=== PATIENT | female | born 1990 | race Caucasian/White ===

== ENCOUNTER 2017-08-16 19:44 | Emergency (ER) | payer MEDICAID ==
[~2017-08-16] VITALS: Ht 152.4 cm; Wt 61.7 kg
[~2017-08-16 19:44] MED LIST: CLIN-79 PO
[2017-08-16 20:15] VITALS: BP 134/76
[2017-08-16 20:55] LABS: BASOPHILS % (AUTO) 0.3 % (0-1); EOSINOPHILS # (AUTO) 0.1 X10'3 (0-0.9); HEMATOCRIT 41.1 % (35.0-45.0); HEMOGLOBIN 13.8 g/dl (12.0-16.0); LYMPHOCYTES # (AUTO) 0.9 X10'3 (1.1-4.8); LYMPHOCYTES % (AUTO) 7.5 % (21-51); MEAN CORPUSCULAR HEMOGLOBIN 29.5 PG (27.0-31.0); MEAN CORPUSCULAR HGB CONC 33.6 % (33.0-36.5); MEAN CORPUSCULAR VOLUME 87.8 FL (78-98); MEAN PLATELET VOLUME 8.3 FL (7.4-10.4); MONOCYTES # (AUTO) 0.4 X10'3 (0-0.9); MONOCYTES % (AUTO) 3.1 % (2-12); NEUTROPHILS # (AUTO) 10.1 X10'3 (1.8-7.7); NEUTROPHILS % (AUTO) 88.1 % (42-75); PLATELET COUNT 267 X10'3 (140-440); RED BLOOD COUNT 4.69 X10'6 (4.20-5.60); RED CELL DISTRIBUTION WIDTH 14.1 % (11.5-14.5); WHITE BLOOD COUNT 11.5 X10'3 (4.5-11.0)
[2017-08-16 21:13] LABS: PARTIAL THROMBOPLASTIN TIME 24 SECONDS (22-32)
[2017-08-16 21:21] LABS: ALANINE AMINOTRANSFERASE 100 U/L (12-78); ALBUMIN 4.3 G/DL (3.4-5.0); ALBUMIN/GLOBULIN RATIO 1.1 (1.1-1.5); ALKALINE PHOSPHATASE 87 IU/L (46-116); ANION GAP 8 (8-16); ASPARTATE AMINO TRANSFERASE 68 U/L (10-37); BILIRUBIN,TOTAL 0.5 MG/DL (0.1-1.0); BLOOD UREA NITROGEN 8 MG/DL (7-18); BUN/CREATININE RATIO 12.7 (6.6-38.0); CALCIUM 9.8 MG/DL (8.5-10.1); CHLORIDE 98 MMOL/L (99-107); CREATININE 0.63 MG/DL (0.40-0.90); GLUCOSE 124 MG/DL (70-104); POTASSIUM 3.7 MMOL/L (3.5-5.1); SODIUM 138 MMOL/L (135-145); TOTAL CARBON DIOXIDE 31.7 MMOL/L (24-32); TOTAL PROTEIN 8.2 G/DL (6.4-8.2); eGFR > 90 ML/MIN
[2017-08-17] MEDS ORDERED: NITR100C6 PO (20:47)
== END 2017-08-16 23:41 | disposition home or self-care (01) ==
LOC: ER 19:44
DX: F15.159 Other stimulant abuse with stimulant-induced psychotic disorder, unspecified (principal); R51 Headache; R07.9 Chest pain, unspecified; Z56.0 Unemployment, unspecified; Z91.030 Bee allergy status; Z79.2 Long term (current) use of antibiotics
CPT/HCPCS: 36415; 71045; 80053; 84484; 85025; 85610; 85730; 93005; 99285

== ENCOUNTER 2017-08-17 17:05 | Emergency (ER) | payer MEDICAID ==
[~2017-08-17] VITALS: Ht 152.4 cm; Wt 59.0 kg
[2017-08-17 18:50] LABS: CLARITY,URINE Cloudy (Clear); COLOR,URINE Yellow (Yellow); GLUCOSE, URINE Negative (Neg); KETONES,URINE 40 mg/dl (Neg); LEUKOCYTE ESTERASE ,URINE Moderate (Neg); NITRITES, URINE Negative (Neg); OCCULT BLOOD,URINE Negative (Neg); PROTEIN,URINE Negative (Neg); URINE HCG NEGATIVE (NEG)
[2017-08-17 19:03] LABS: UA COLLECTION TYPE VOIDED
[2017-08-17 19:04] LABS: BACTERIA,URINE FEW /HPF (Neg); RBC,URINE NONE SEEN /HPF (0-2); SQUAMOUS EPITHELIAL CELL,UR MODERATE /LPF (FEW)
[2017-08-17] MEDS ORDERED: NITR100C6 PO (20:47)
[2017-08-17 20:55] VITALS: BP 132/79
[2017-08-18] MEDS ORDERED: CEPH-571 PO (14:39)
== END 2017-08-17 20:58 | disposition home or self-care (01) ==
LOC: ER 17:06
DX: N39.0 Urinary tract infection, site not specified (principal); R10.31 Right lower quadrant pain; F15.10 Other stimulant abuse, uncomplicated; Z60.2 Problems related to living alone; Z91.030 Bee allergy status; Z79.899 Other long term (current) drug therapy
CPT/HCPCS: 76856; 81001; 81025; 87088; 99285

== ENCOUNTER 2017-08-17 23:45 | Emergency (ER) | payer MEDICAID ==
[~2017-08-17] VITALS: Ht 152.4 cm; Wt 54.5 kg
[~2017-08-17 23:45] MED LIST changes: +NITR100C6 PO
[2017-08-18 03:41] VITALS: BP 122/78
[2017-08-18] MEDS ORDERED: CEPH-571 PO (14:39)
== END 2017-08-18 03:43 | disposition home or self-care (01) ==
LOC: ER 23:46
DX: F29 Unspecified psychosis not due to a substance or known physiological condition (principal); F15.10 Other stimulant abuse, uncomplicated; F17.200 Nicotine dependence, unspecified, uncomplicated; Z98.890 Other specified postprocedural states; Z56.0 Unemployment, unspecified; Z91.030 Bee allergy status; Z79.899 Other long term (current) drug therapy
CPT/HCPCS: 99281; 99284

== ENCOUNTER 2017-08-18 06:50 | Emergency (ER) | payer MEDICAID ==
[~2017-08-18] VITALS: Ht 152.4 cm; Wt 54.0 kg
[2017-08-18 06:58] VITALS: BP 126/86
[2017-08-18] MEDS ORDERED: lamoTRIgine 25mg tablet PO ONE (08:35)
[2017-08-18] MEDS ORDERED: clonazePAM 0.5mg tablet PO ONE (08:35)
[2017-08-18] MEDS ORDERED: CEPH-571 PO (14:39)
== END 2017-08-18 09:20 | disposition home or self-care (01) ==
LOC: ER 06:50
DX: F20.9 Schizophrenia, unspecified (principal); F15.10 Other stimulant abuse, uncomplicated; Z91.030 Bee allergy status; Z98.890 Other specified postprocedural states
CPT/HCPCS: 99283; 99284

== ENCOUNTER 2017-08-18 12:49 | Emergency (ER) | payer MEDICAID ==
[~2017-08-18] VITALS: Ht 152.4 cm; Wt 60.5 kg
[2017-08-18 12:54] VITALS: BP 112/81
[2017-08-18] MEDS ORDERED: CEPH-571 PO (14:39)
== END 2017-08-18 14:49 | disposition home or self-care (01) ==
LOC: ER 12:50
DX: R22.0 Localized swelling, mass and lump, head (principal); T37.8X5A Adverse effect of other specified systemic anti-infectives and antiparasitics, initial encounter; N39.0 Urinary tract infection, site not specified; F15.10 Other stimulant abuse, uncomplicated; F20.9 Schizophrenia, unspecified; Z91.030 Bee allergy status; Y92.89 Other specified places as the place of occurrence of the external cause
CPT/HCPCS: 99283

== ENCOUNTER 2017-08-19 10:35 | Emergency (ER) | payer MEDICAID ==
[~2017-08-19] VITALS: Ht 5032.2 cm; Wt 60.0 kg
[~2017-08-19 10:35] MED LIST changes: +CEPH-571 PO
[2017-08-19] MEDS ORDERED: diphenhydrAMINE 50 mg/ml inj IM ONE (11:30)
[2017-08-19] MEDS ORDERED: LORazepam 2 mg/ml vial IM ONE (11:30)
[2017-08-19 12:11] LABS: BASOPHILS % (AUTO) 0.6 % (0-1); EOSINOPHILS # (AUTO) 0.1 X10'3 (0-0.9); EOSINOPHILS % (AUTO) 1.3 % (0-6); HEMATOCRIT 38.7 % (35.0-45.0); HEMOGLOBIN 13.1 g/dl (12.0-16.0); LYMPHOCYTES # (AUTO) 1.7 X10'3 (1.1-4.8); LYMPHOCYTES % (AUTO) 29.6 % (21-51); MEAN CORPUSCULAR HEMOGLOBIN 29.9 PG (27.0-31.0); MEAN CORPUSCULAR HGB CONC 33.8 % (33.0-36.5); MEAN CORPUSCULAR VOLUME 88.4 FL (78-98); MEAN PLATELET VOLUME 8.1 FL (7.4-10.4); MONOCYTES # (AUTO) 0.6 X10'3 (0-0.9); MONOCYTES % (AUTO) 10.6 % (2-12); NEUTROPHILS # (AUTO) 3.3 X10'3 (1.8-7.7); NEUTROPHILS % (AUTO) 57.9 % (42-75); PLATELET COUNT 260 X10'3 (140-440); RED BLOOD COUNT 4.38 X10'6 (4.20-5.60); RED CELL DISTRIBUTION WIDTH 14.1 % (11.5-14.5); WHITE BLOOD COUNT 5.7 X10'3 (4.5-11.0)
[2017-08-19 12:24] LABS: ALANINE AMINOTRANSFERASE 75 U/L (12-78); ALBUMIN 3.8 G/DL (3.4-5.0); ALBUMIN/GLOBULIN RATIO 1.1 (1.1-1.5); ALKALINE PHOSPHATASE 83 IU/L (46-116); ANION GAP 7 (8-16); ASPARTATE AMINO TRANSFERASE 39 U/L (10-37); BLOOD UREA NITROGEN 16 MG/DL (7-18); BUN/CREATININE RATIO 21.6 (6.6-38.0); CHLORIDE 104 MMOL/L (99-107); CREATININE 0.74 MG/DL (0.40-0.90); GLUCOSE 82 MG/DL (70-104); SODIUM 141 MMOL/L (135-145); TOTAL CARBON DIOXIDE 29.9 MMOL/L (24-32); TOTAL PROTEIN 7.4 G/DL (6.4-8.2); eGFR > 90 ML/MIN
[2017-08-19 12:33] LABS: ETHANOL < 0.010 GM/DL (0.0-0.010)
[2017-08-19 13:12] LABS: CLARITY,URINE CLEAR (Clear); COLOR,URINE YELLOW (Yellow); GLUCOSE, URINE NEGATIVE (Neg); KETONES,URINE TRACE mg/dl (Neg); LEUKOCYTE ESTERASE ,URINE NEGATIVE (Neg); NITRITES, URINE NEGATIVE (Neg); OCCULT BLOOD,URINE TRACE-INTACT (Neg); PH,URINE 5.5 (4.8-8.0); PROTEIN,URINE NEGATIVE (Neg); UROBILINOGEN,URINE 0.2 E.U/dL (0.2-1.0)
[2017-08-19 13:13] LABS: URINE HCG NEGATIVE (NEG)
[2017-08-19 13:19] LABS: UA COLLECTION TYPE URINAL
[2017-08-19 13:25] LABS: MUCUS STRANDS MODERATE /LPF (Neg); SQUAMOUS EPITHELIAL CELL,UR MANY /LPF (FEW)
[2017-08-19 13:26] LABS: URINE AMPHETAMINE SCREEN POSITIVE (Neg); URINE BARBITUATE SCREEN NEGATIVE (Neg); URINE BENZODIAZEPINES SCREEN NEGATIVE (Neg); URINE CANNABINOID SCREEN POSITIVE (Neg); URINE COCAINE SCREEN NEGATIVE (Neg); URINE METHADONE SCREEN POSITIVE (Neg); URINE OPIATE SCREEN POSITIVE (Neg); URINE PHENCYCLIDINE SCREEN NEGATIVE (Neg)
[2017-08-19 13:28] LABS: BACTERIA,URINE FEW /HPF (Neg); RBC,URINE 0-2 /HPF (0-2); WBC,URINE 0-4 /HPF (0-4)
[2017-08-19] MEDS ORDERED: haloperidol lactate 5mg/ml inj IM PRN (19:05)
[2017-08-20] MEDS ORDERED: METH-603 PO ×3 (05:49→12:04)
[2017-08-20] MEDS ORDERED: methadone 10mg tablet PO ONE ×2 (08:00→12:55)
[2017-08-20] MEDS ORDERED: nicotine 14mg patch - 24hr TD ONE (11:30)
[2017-08-20] MEDS ORDERED: quetiapine 100mg tablet PO SCH (11:30)
[2017-08-20] MEDS ORDERED: QUEtiapine 25mg tablet PO SCH ×2 (11:38→21:00)
[2017-08-20] MEDS ORDERED: QUET25TA PO (11:54)
[2017-08-20] MEDS ORDERED: NICO-630 TOP (11:57)
[2017-08-20] MEDS: LORazepam 1 MG tablet PO PRN ×2 (12:28→20:27)
[2017-08-20] MEDS: QUEtiapine 25mg tablet PO SCH (20:27)
[2017-08-21] MEDS: methadone 10mg tablet PO SCH (05:47)
[2017-08-21] MEDS: LORazepam 1 MG tablet PO PRN ×2 (05:53→21:09)
[2017-08-21] MEDS: nicotine 7mg patch - 24hr TD SCH (08:00)
[2017-08-21] MEDS: QUEtiapine 25mg tablet PO SCH (21:09)
[2017-08-22] MEDS: methadone 10mg tablet PO SCH (05:36)
[2017-08-22] MEDS: nicotine 7mg patch - 24hr TD SCH (08:00)
[2017-08-22] MEDS: LORazepam 1 MG tablet PO PRN (09:01)
[2017-08-22 11:52] VITALS: BP 100/57
== END 2017-08-22 13:35 | disposition home or self-care (01) ==
LOC: ER 10:36
DX: F15.159 Other stimulant abuse with stimulant-induced psychotic disorder, unspecified (principal); F19.10 Other psychoactive substance abuse, uncomplicated; F20.9 Schizophrenia, unspecified; Z98.890 Other specified postprocedural states; Z56.0 Unemployment, unspecified; Z91.030 Bee allergy status; Z79.899 Other long term (current) drug therapy
CPT/HCPCS: 36415; 80053; 80305; 80320; 81001; 81025; 84443; 85025; 96372; 99285; J1200; J1630; J2060

== ENCOUNTER 2020-04-16 11:35 | Emergency (ER) | payer MEDICAID ==
[~2020-04-16] VITALS: Ht 154.9 cm; Wt 69.9 kg
[~2020-04-16 11:35] MED LIST changes: -CEPH-571 PO; -CLIN-79 PO; +METH-603 PO; +NICO-630 TOP; -NITR100C6 PO; +QUET25TA PO
[2020-04-16] MEDS ORDERED: lamoTRIgine 100mg tablet PO STA (11:52)
[2020-04-16 11:55] VITALS: BP 127/79
[2020-04-16] MEDS ORDERED: LAMO200T2 PO (11:55)
[2020-04-16] MEDS ORDERED: QUET400T PO (11:55)
[2020-04-16] MEDS ORDERED: HALO10TA13 PO (11:55)
[2020-04-16] MEDS ORDERED: CLON-527 PO (11:55)
[2020-04-16] MEDS ORDERED: clonazePAM 1mg tablet PO ONE (12:10)
== END 2020-04-16 12:19 | disposition home or self-care (01) ==
LOC: ER 11:36
DX: F20.9 Schizophrenia, unspecified (principal); F15.90 Other stimulant use, unspecified, uncomplicated; Z76.0 Encounter for issue of repeat prescription; Z86.69 Personal history of other diseases of the nervous system and sense organs; Z56.0 Unemployment, unspecified; Z88.8 Allergy status to other drugs, medicaments and biological substances; Z79.899 Other long term (current) drug therapy
CPT/HCPCS: 99283

== ENCOUNTER 2020-04-19 21:25 | Emergency (ER) | payer MEDICAID ==
[~2020-04-19] VITALS: Ht 157.5 cm; Wt 70.0 kg
[~2020-04-19 21:25] MED LIST changes: +CLON-527 PO; +HALO10TA13 PO; +LAMO200T2 PO; +QUET400T PO
[2020-04-19 21:33] VITALS: BP 121/86
[2020-04-19] MEDS ORDERED: clonazePAM 1mg tablet PO ONE (22:15)
[2020-04-19] MEDS ORDERED: QUET400T PO (22:15)
[2020-04-19] MEDS ORDERED: LAMO200T2 PO (22:15)
[2020-04-29] MEDS ORDERED: QUET100T33 PO (13:28)
[2020-04-29] MEDS ORDERED: QUET200T30 PO (13:28)
[2020-05-01] MEDS ORDERED: HYDR-4383 PO (12:18)
== END 2020-04-19 22:36 | disposition home or self-care (01) ==
LOC: ER 21:27
DX: F20.9 Schizophrenia, unspecified (principal); F17.210 Nicotine dependence, cigarettes, uncomplicated; F15.90 Other stimulant use, unspecified, uncomplicated; F19.90 Other psychoactive substance use, unspecified, uncomplicated; Z76.0 Encounter for issue of repeat prescription; Z86.69 Personal history of other diseases of the nervous system and sense organs; Z98.890 Other specified postprocedural states; Z56.0 Unemployment, unspecified; Z91.030 Bee allergy status; Z79.899 Other long term (current) drug therapy
CPT/HCPCS: 99283

== ENCOUNTER 2020-04-24 00:27 | Emergency (ER) | payer MEDICAID ==
--- NOTE | 2020-04-24 00:34 | NUR ---
Called for pt however pt was utilizing the restroom. As soon as pt got out of the restroom, she left the ER saying she "had things to do."
== END 2020-04-24 00:36 | disposition home or self-care (01) ==
LOC: ER 00:28
DX: Z00.00 Encounter for general adult medical examination without abnormal findings (principal); Z53.21 Procedure and treatment not carried out due to patient leaving prior to being seen by health care provider

== ENCOUNTER 2020-10-31 13:00 | Emergency (ER) | payer MEDICAID ==
[~2020-10-31 13:00] MED LIST changes: -CLON-527 PO; -HALO10TA13 PO; +HYDR-4383 PO; -LAMO200T2 PO; -METH-603 PO; -NICO-630 TOP; +QUET100T33 PO; +QUET200T30 PO; -QUET25TA PO; -QUET400T PO
--- NOTE | 2020-10-31 13:19 | NUR ---
During triage, I started to place a blood pressure on patients left arm. Patient pushed the blood pressure cuff away and started to speak and looked directly at Blanca RN sitting at the desk. Patient would not look at me. While I spoke so Blanca spoke to patient and began to inquire regarding description of animal/snake. Patient stated that she would like to alert the authorities regarding someone putting a snake under her bed at which she was bitten by. Blanca asked what authorities she would like us to contact, she stated [employer] or animal control. Patient stated that [employer] would not do anything and that she came here thinking that we would be able to contact someone. We proceeded to ask about notifying animal control. I asked patient if the snake was still in her house and she said no it wasn't. I then I explained to her that law enforcement wouldn't be able to tell her who if anyone could have put a snake in her house unless she had cameras outside her home showing someone breaking in and placing said snake. I told her and if the snake was still in the house that we would contact animal control, but it was not. Patient stated that she didn't want to be seen that all she wanted was to notify the appropriate authorities. I told her that I could get a provider to see her in triage and evaluate the puncture wounds on her hand and she got up out of the triage chair, opened the door and left the lobby. I notified Dr. Ricardo regarding encounter.
== END 2020-10-31 13:40 | disposition left against medical advice (07) ==
LOC: ER 13:01
DX: T63.001A Toxic effect of unspecified snake venom, accidental (unintentional), initial encounter (principal); Z53.21 Procedure and treatment not carried out due to patient leaving prior to being seen by health care provider; Y92.89 Other specified places as the place of occurrence of the external cause

== ENCOUNTER 2020-11-12 17:20 | Emergency (ER) | payer MEDICAID ==
[~2020-11-12] VITALS: Ht 154.9 cm; Wt 65.9 kg
== END 2020-11-12 19:40 | disposition home or self-care (01) ==
LOC: ER 17:20
DX: M26.622 Arthralgia of left temporomandibular joint (principal); F20.9 Schizophrenia, unspecified; F15.90 Other stimulant use, unspecified, uncomplicated; Z87.442 Personal history of urinary calculi; Z86.69 Personal history of other diseases of the nervous system and sense organs; Z56.0 Unemployment, unspecified; Z98.890 Other specified postprocedural states; Z91.030 Bee allergy status; Z79.899 Other long term (current) drug therapy
CPT/HCPCS: 99282

== ENCOUNTER 2021-05-10 03:00 | Emergency (ER) | payer MEDICAID ==
[~2021-05-10] VITALS: Ht 152.4 cm; Wt 72.7 kg
[~2021-05-10 03:00] MED LIST changes: -QUET100T33 PO; +QUET100T34 PO; -QUET200T30 PO; +QUET200T31 PO
[2021-05-10 03:07] VITALS: BP 100/68
== END 2021-05-10 04:33 | disposition left against medical advice (07) ==
LOC: ER 03:01
DX: Z76.0 Encounter for issue of repeat prescription (principal); Z53.21 Procedure and treatment not carried out due to patient leaving prior to being seen by health care provider

== ENCOUNTER 2021-05-11 01:33 | Emergency (ER) | payer MEDICAID ==
[~2021-05-11] VITALS: Ht 165.1 cm; Wt 53.5 kg
[2021-05-11 02:00] VITALS: BP 107/72
--- NOTE | 2021-05-11 02:46 | NUR ---
The patient moved to bed 24 in the ER. She is wanting help with bugs that she believes are coming out all over her. She grabbed her hair and stated "just look at my hair it's a mess" There were no bugs that could be seen. She is mumbling to herself at times. She admits to recent meth use. She stated that she has been making her own oxycodone prescriptions by buying the chemical compounds and putting the pills together herself. 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 She denies thoughts to harm herself or others. She is asking about suboxone. When asked what her MH dx was she stated "I have a sleep disorder"
--- NOTE | 2021-05-11 03:03 | NUR ---
The patient is insisting on speaking with the MD before she complies with any additional requests from staff. Labs are pending.
[2021-05-11 03:27] LABS: BASOPHILS % (AUTO) 0.9 % (0-1); EOSINOPHILS # (AUTO) 0.1 X10'3 (0-0.9); HEMATOCRIT 35.9 % (35.0-45.0); HEMOGLOBIN 12.3 g/dl (12.0-16.0); LYMPHOCYTES # (AUTO) 1.5 X10'3 (1.1-4.8); LYMPHOCYTES % (AUTO) 35.8 % (21-51); MEAN CORPUSCULAR HGB CONC 34.3 g/dL (33.0-36.5); MEAN CORPUSCULAR VOLUME 87.4 FL (78-98); MEAN PLATELET VOLUME 8.3 FL (7.4-10.4); MONOCYTES # (AUTO) 0.6 X10'3 (0-0.9); MONOCYTES % (AUTO) 13.3 % (2-12); NEUTROPHILS # (AUTO) 2.1 X10'3 (1.8-7.7); PLATELET COUNT 266 X10'3 (140-440); RED BLOOD COUNT 4.11 X10'6 (4.20-5.60); RED CELL DISTRIBUTION WIDTH 13.5 % (11.5-14.5); WHITE BLOOD COUNT 4.3 X10'3 (4.5-11.0)
[2021-05-11 03:28] LABS: URINE HCG NEGATIVE (NEG)
[2021-05-11 03:45] LABS: URINE AMPHETAMINE SCREEN POSITIVE (Neg); URINE BARBITUATE SCREEN NEGATIVE (Neg); URINE BENZODIAZEPINES SCREEN NEGATIVE (Neg); URINE CANNABINOID SCREEN POSITIVE (Neg); URINE METHADONE SCREEN POSITIVE (Neg); URINE OPIATE SCREEN POSITIVE (Neg); URINE PHENCYCLIDINE SCREEN NEGATIVE (Neg)
[2021-05-11 03:46] LABS: ALANINE AMINOTRANSFERASE 24 U/L (12-78); ALBUMIN 3.6 G/DL (3.4-5.0); ALBUMIN/GLOBULIN RATIO 1.1 (1.1-1.5); ALKALINE PHOSPHATASE 87 IU/L (46-116); ANION GAP 8 (8-16); ASPARTATE AMINO TRANSFERASE 18 U/L (10-37); BILIRUBIN,TOTAL 1.1 MG/DL (0.1-1.0); BLOOD UREA NITROGEN 16 MG/DL (7-18); BUN/CREATININE RATIO 20.8 (6.6-38.0); CALCIUM 8.6 MG/DL (8.5-10.1); CHLORIDE 107 MMOL/L (99-107); CREATININE 0.77 MG/DL (0.40-0.90); GLUCOSE 96 MG/DL (70-104); POTASSIUM 3.9 MMOL/L (3.5-5.1); SODIUM 143 MMOL/L (135-145); TOTAL CARBON DIOXIDE 28.1 MMOL/L (24-32); eGFR 88 ML/MIN
--- NOTE | 2021-05-11 03:47 | NUR ---
The patient eloped from the overflow area. Security was contacted. ER [facility] following the patient.
--- NOTE | 2021-05-11 03:50 | NUR ---
made aware of patient eloping from the overflow. The patient was denying that she had any suicidal or homicidal thoughts. She stated that she had a home to go to. Her drug screen was positive for opiates, methadone, amphetamines and THC.
[2021-05-11 04:10] LABS: ETHANOL < 0.010 GM/DL (0.0-0.010)
[2021-05-11 04:41] LABS: URINE COCAINE SCREEN NEGATIVE (Neg)
== END 2021-05-11 04:19 | disposition left against medical advice (07) ==
LOC: ER 01:34
DX: Z00.8 Encounter for other general examination (principal); Z20.822 Contact with and (suspected) exposure to COVID-19; Z53.21 Procedure and treatment not carried out due to patient leaving prior to being seen by health care provider
CPT/HCPCS: 36415; 80053; 80305; 80320; 81025; 84443; 85025; 87635; C9803

== ENCOUNTER 2022-08-01 19:29 | Emergency (ER) | payer MEDICAID ==
[~2022-08-01] VITALS: Ht 154.9 cm; Wt 68.2 kg
[2022-08-01 20:36] LABS: BASOPHILS % (AUTO) 0.2 % (0-1); EOSINOPHILS # (AUTO) 0.2 X10'3 (0-0.9); EOSINOPHILS % (AUTO) 2.2 % (0-6); HEMATOCRIT 41.9 % (35.0-45.0); HEMOGLOBIN 14.1 g/dl (12.0-16.0); LYMPHOCYTES % (AUTO) 12.7 % (21-51); MEAN CORPUSCULAR HEMOGLOBIN 29.9 PG (27.0-31.0); MEAN CORPUSCULAR HGB CONC 33.6 g/dL (33.0-36.5); MEAN PLATELET VOLUME 7.7 FL (7.4-10.4); MONOCYTES # (AUTO) 0.8 X10'3 (0-0.9); MONOCYTES % (AUTO) 10.1 % (2-12); NEUTROPHILS # (AUTO) 5.9 X10'3 (1.8-7.7); NEUTROPHILS % (AUTO) 74.8 % (42-75); PLATELET COUNT 356 X10'3 (140-440); RED BLOOD COUNT 4.71 X10'6 (4.20-5.60); RED CELL DISTRIBUTION WIDTH 14.1 % (11.5-14.5); WHITE BLOOD COUNT 7.8 X10'3 (4.5-11.0)
[2022-08-01 20:48] LABS: ALANINE AMINOTRANSFERASE 37 U/L (12-78); ALBUMIN 3.5 G/DL (3.4-5.0); ALBUMIN/GLOBULIN RATIO 0.9 (1.1-1.5); ALKALINE PHOSPHATASE 78 IU/L (46-116); ANION GAP 8 (8-16); ASPARTATE AMINO TRANSFERASE 23 U/L (10-37); BILIRUBIN,TOTAL 0.7 MG/DL (0.1-1.0); BLOOD UREA NITROGEN 9 MG/DL (7-18); BUN/CREATININE RATIO 18.4 (6.6-38.0); CALCIUM 9.1 MG/DL (8.5-10.1); CHLORIDE 99 MMOL/L (99-107); CREATININE 0.49 MG/DL (0.40-0.90); GLUCOSE 97 MG/DL (70-104); LIPASE < 50 U/L (73-393); POTASSIUM 3.7 MMOL/L (3.5-5.1); SODIUM 138 MMOL/L (135-145); TOTAL CARBON DIOXIDE 30.7 MMOL/L (24-32); TOTAL PROTEIN 7.6 G/DL (6.4-8.2); eGFR > 90 ML/MIN
[2022-08-01] MEDS ORDERED: famotidine/PF 10 mg/ml inj IV ONE (23:20)
[2022-08-01] MEDS ORDERED: LIDOcaine Viscous 15ml cup MM ONE (23:20)
[2022-08-01] MEDS ORDERED: ondansetron/PF 4mg/2ml inj IV ONE (23:20)
[2022-08-01] MEDS ORDERED: normal saline 1000ml 1,000 ML IV ONE (23:20)
[2022-08-01] MEDS ORDERED: mag hydrox/Alum hydrox/simeth 30ml oral suspension PO ONE (23:20)
[2022-08-01] MEDS ORDERED: pantoprazole 40mg IV 80 MG in normal saline 100ml IV soln 100 ML IV ONE (23:20)
[2022-08-02] MEDS ORDERED: ketorolac trometh. 30mg/ml inj. IV ONE (00:25)
[2022-08-02 01:07] LABS: HCG SERUM QL NEGATIVE
[2022-08-02] MEDS ORDERED: ONDA8TAB13 PO (01:10)
[2022-08-02] MEDS ORDERED: FAMO-128 PO (01:10)
[2022-08-02 01:31] VITALS: BP 99/66
== END 2022-08-02 01:35 | disposition home or self-care (01) ==
LOC: ER 19:30
DX: K29.70 Gastritis, unspecified, without bleeding (principal); F20.9 Schizophrenia, unspecified; Z87.442 Personal history of urinary calculi; Z59.00 Homelessness unspecified; Z56.0 Unemployment, unspecified
CPT/HCPCS: 36415; 80053; 83690; 84703; 85025; 96365; 96375; 99284; C9113; J1885; J2405; J3490; J7030

== ENCOUNTER 2023-12-28 12:42 | Emergency (ER) | payer MEDICAID ==
[~2023-12-28] VITALS: Ht 154.9 cm; Wt 76.8 kg
[~2023-12-28 12:42] MED LIST changes: +FAMO-128 PO; +ONDA8TAB13 PO
[2023-12-28 13:59] LABS: URINE HCG NEGATIVE (NEG)
[2023-12-28] MEDS: normal saline 1000ML IV soln IVB ONE (14:25)
[2023-12-28] MEDS: ondansetron/PF 4mg/2ml inj IV ONE (14:25)
[2023-12-28] MEDS: ondansetron 4mg rapidly disintigrating tab PO ONE (14:34)
[2023-12-28 16:19] VITALS: BP 128/81; PULSE 91; RESP 18; O2SAT 99
== END 2023-12-28 16:59 | disposition home or self-care (01) ==
LOC: ER 12:42
DX: T40.411A Poisoning by fentanyl or fentanyl analogs, accidental (unintentional), initial encounter (principal); Z91.030 Bee allergy status; F20.9 Schizophrenia, unspecified; F15.90 Other stimulant use, unspecified, uncomplicated; Y92.89 Other specified places as the place of occurrence of the external cause
CPT/HCPCS: 81025; 99283; J7030

== ENCOUNTER 2024-04-01 06:00 | Inpatient (IN) | payer MEDICAID ==
[~2024-04-01] VITALS: Ht 152.4 cm; Wt 79.0 kg
[~2024-04-01 06:00] MED LIST changes: +ONDA-245 PO; -ONDA8TAB13 PO
[2024-04-01 07:52] LABS: BASOPHILS % (AUTO) 0.1 % (0-1); EOSINOPHILS % (AUTO) 0 % (0-6); HEMATOCRIT 38.7 % (35.0-45.0); HEMOGLOBIN 12.6 g/dl (12.0-16.0); LYMPHOCYTES # (AUTO) 0.5 X10'3 (1.1-4.8); LYMPHOCYTES % (AUTO) 1.8 % (21-51); MEAN CORPUSCULAR HEMOGLOBIN 29.3 PG (27.0-31.0); MEAN CORPUSCULAR HGB CONC 32.5 g/dL (33.0-36.5); MEAN PLATELET VOLUME 8.9 FL (7.4-10.4); MONOCYTES % (AUTO) 3.8 % (2-12); NEUTROPHILS # (AUTO) 24.1 X10'3 (1.8-7.7); NEUTROPHILS % (AUTO) 94.3 % (42-75); PLATELET COUNT 311 X10'3 (140-440); RED CELL DISTRIBUTION WIDTH 13.7 % (11.5-14.5)
[2024-04-01 07:57] LABS: WHITE BLOOD COUNT 25.5 X10'3 (4.5-11.0)
[2024-04-01 08:38] LABS: ALANINE AMINOTRANSFERASE 55 U/L (12-78); ALBUMIN 3.6 G/DL (3.4-5.0); ALBUMIN/GLOBULIN RATIO 1.1 (1.1-1.5); ALKALINE PHOSPHATASE 87 IU/L (46-116); ANION GAP 12 (8-16); ASPARTATE AMINO TRANSFERASE 72 U/L (10-37); BILIRUBIN,TOTAL 0.8 MG/DL (0.1-1.0); BLOOD UREA NITROGEN 12 MG/DL (7-18); CALCIUM 8.9 MG/DL (8.5-10.1); CHLORIDE 102 MMOL/L (99-107); GLUCOSE 132 MG/DL (70-104); SODIUM 141 MMOL/L (135-145); TOTAL CARBON DIOXIDE 27.4 MMOL/L (24-32); eCRCL 72 ML/MIN; eGFR 83 ML/MIN
[2024-04-01 08:40] LABS: POTASSIUM 2.8 MMOL/L (3.5-5.1)
[2024-04-01 08:46] LABS: PLATELET ESTIMATE NORMAL; TOTAL CELLS COUNTED 100
[2024-04-01] MEDS ORDERED: NALO4SPR BOTHNARES (09:06)
[2024-04-01] MEDS: ketorolac trometh 30MG/ML vial 30 MG/ML VIAL IV ONE (09:12)
[2024-04-01] MEDS: magnesium sulf-water 2g/50mL 50 ML IV ONE (09:12)
[2024-04-01 09:25] LABS: CREATINE KINASE 114 U/L (26-192)
[2024-04-01] MEDS: POTASSIUM CHLORIDE 20 MEQ/15 ML oral solution PO ONE (09:26)
[2024-04-01 09:32] LABS: BETA HCG,QUANTITATIVE < 1.0 mIU/ml
[2024-04-01 11:27] LABS: BILIRUBIN,URINE SMALL (Neg); CLARITY,URINE CLOUDY (Clear); COLOR,URINE YELLOW (Yellow); GLUCOSE, URINE 250 mg/dl (Neg); KETONES,URINE 40 mg/dl (Neg); LEUKOCYTE ESTERASE ,URINE NEGATIVE (Neg); NITRITES, URINE NEGATIVE (Neg); OCCULT BLOOD,URINE NEGATIVE (Neg); PROTEIN,URINE TRACE mg/dl (Neg)
[2024-04-01 11:49] LABS: UA COLLECTION TYPE CLN CATCH MIDSTREAM
[2024-04-01 11:52] LABS: BACTERIA,URINE 4+ /HPF (Neg); RBC,URINE NONE SEEN /HPF (0-2); SQUAMOUS EPITHELIAL CELL,UR MANY /LPF (FEW)
[2024-04-01 11:53] LABS: WBC,URINE 20-30 /HPF (0-4)
[2024-04-01] MEDS ORDERED: potassium Cl 40MEQ/1/2NS 520ml 520 ML IV PRN (13:40)
[2024-04-01] MEDS ORDERED: potassium Cl 20 mEq SR tablet PO PRN ×2 (13:40)
[2024-04-01] MEDS ORDERED: ondansetron/PF 4mg/2ml inj IV PRN (13:40)
[2024-04-01] MEDS ORDERED: magnesium hydroxide 30ml (MOM) UD suspension PO PRN (13:40)
[2024-04-01] MEDS ORDERED: magnesium sulf-water 2g/50mL 50 ML IV PRN (13:40)
[2024-04-01] MEDS ORDERED: mag hydrox/Alum hydrox/simeth 30ml oral suspension PO PRN (13:40)
[2024-04-01] MEDS ORDERED: magnesium sulf-water 4G/100mL 100 ML IV PRN (13:40)
[2024-04-01] MEDS: naloxone 2mg/2ml inj 2 MG in normal saline 500ml IV soln 498 ML IV SCH (14:16)
[2024-04-01] MEDS ORDERED: morphine 2 MG/ML inj. syringe IV PRN (14:35)
[2024-04-01] MEDS: normal saline 1000ml 1,000 ML IV SCH (15:52)
[2024-04-01 15:55] LABS: C-REACTIVE PROTEIN 1.38 MG/DL (0.0-0.5); MAGNESIUM 2.5 MG/DL (1.5-2.4)
[2024-04-01 15:59] LABS: ETHANOL < 10 MG/DL (<10)
[2024-04-01] MEDS: normal saline 500ml IV soln 500 ML IV ONE (17:20)
[2024-04-01] MEDS: normal saline 1000ML IV soln IVB ONE (17:21)
[2024-04-01 19:15] VITALS: BP 95/65; PULSE 98; RESP 16; TEMP 97.5; O2SAT 100
[2024-04-01 20:00] VITALS: RESP 16; O2SAT 96
[2024-04-01] MEDS: K and/or MAG REPLACEMENT MC SCH (20:00)
[2024-04-01] MEDS ORDERED: docusate sod 100mg capsule PO SCH (20:00)
[2024-04-01] MEDS: enoxaparin 40mg/0.4ml syringe SQ SCH (20:09)
[2024-04-01 22:00] VITALS: BP 102/58; PULSE 78; RESP 16; TEMP 98.1; O2SAT 95
[2024-04-01 22:42] LABS: BASOPHILS % (AUTO) 0.4 % (0-1); EOSINOPHILS # (AUTO) 0.1 X10'3 (0-0.9); EOSINOPHILS % (AUTO) 2.1 % (0-6); HEMATOCRIT 32.5 % (35.0-45.0); HEMOGLOBIN 10.8 g/dl (12.0-16.0); LYMPHOCYTES # (AUTO) 1.5 X10'3 (1.1-4.8); LYMPHOCYTES % (AUTO) 23.1 % (21-51); MEAN CORPUSCULAR HEMOGLOBIN 29.8 PG (27.0-31.0); MEAN CORPUSCULAR HGB CONC 33.2 g/dL (33.0-36.5); MEAN CORPUSCULAR VOLUME 89.9 FL (78-98); MEAN PLATELET VOLUME 8.5 FL (7.4-10.4); MONOCYTES # (AUTO) 0.8 X10'3 (0-0.9); MONOCYTES % (AUTO) 12.5 % (2-12); NEUTROPHILS # (AUTO) 4.1 X10'3 (1.8-7.7); NEUTROPHILS % (AUTO) 61.9 % (42-75); PLATELET COUNT 262 X10'3 (140-440); RED BLOOD COUNT 3.62 X10'6 (4.20-5.60); RED CELL DISTRIBUTION WIDTH 13.7 % (11.5-14.5); WHITE BLOOD COUNT 6.6 X10'3 (4.5-11.0)
[2024-04-02] MEDS: morphine 4 MG/ML inj SYRINge IV PRN (04:18)
[2024-04-02 04:32] LABS: URINE AMPHETAMINE SCREEN POSITIVE (Neg); URINE BARBITUATE SCREEN NEGATIVE (Neg); URINE BENZODIAZEPINES SCREEN NEGATIVE (Neg); URINE CANNABINOID SCREEN NEGATIVE (Neg); URINE COCAINE SCREEN NEGATIVE (Neg); URINE METHADONE SCREEN NEGATIVE (Neg); URINE OPIATE SCREEN NEGATIVE (Neg); URINE PHENCYCLIDINE SCREEN NEGATIVE (Neg)
[2024-04-02 06:00] VITALS: BP 93/54; PULSE 81; RESP 14; TEMP 97; O2SAT 97
[2024-04-02] MEDS ORDERED: POTASSIUM CHLORIDE 20 MEQ/15 ML oral solution PO SCH (08:00)
[2024-04-02 08:55] LABS: ALANINE AMINOTRANSFERASE 39 U/L (12-78); ALBUMIN 2.6 G/DL (3.4-5.0); ALBUMIN/GLOBULIN RATIO 0.9 (1.1-1.5); ALKALINE PHOSPHATASE 76 IU/L (46-116); ANION GAP 7 (8-16); ASPARTATE AMINO TRANSFERASE 25 U/L (10-37); BILIRUBIN,TOTAL 0.3 MG/DL (0.1-1.0); BLOOD UREA NITROGEN 7 MG/DL (7-18); BUN/CREATININE RATIO 16.7 (10.0-20.0); C-REACTIVE PROTEIN 0.98 MG/DL (0.0-0.5); CALCIUM 8.2 MG/DL (8.5-10.1); CHLORIDE 108 MMOL/L (99-107); CREATININE 0.42 MG/DL (0.40-0.90); GLUCOSE 89 MG/DL (70-104); MAGNESIUM 1.7 MG/DL (1.5-2.4); POTASSIUM 3.9 MMOL/L (3.5-5.1); SODIUM 140 MMOL/L (135-145); TOTAL CARBON DIOXIDE 24.9 MMOL/L (24-32); TOTAL PROTEIN 5.5 G/DL (6.4-8.2); eCRCL 137 ML/MIN; eGFR > 90 ML/MIN
[2024-04-02 09:12] LABS: EOSINOPHILS # (AUTO) 0.1 X10'3 (0-0.9); EOSINOPHILS % (AUTO) 2.2 % (0-6); HEMATOCRIT 31.7 % (35.0-45.0); HEMOGLOBIN 10.5 g/dl (12.0-16.0); LYMPHOCYTES % (AUTO) 22.2 % (21-51); MEAN CORPUSCULAR HEMOGLOBIN 29.6 PG (27.0-31.0); MEAN CORPUSCULAR VOLUME 89.6 FL (78-98); MEAN PLATELET VOLUME 9.6 FL (7.4-10.4); MONOCYTES # (AUTO) 0.5 X10'3 (0-0.9); MONOCYTES % (AUTO) 10.8 % (2-12); NEUTROPHILS # (AUTO) 2.8 X10'3 (1.8-7.7); NEUTROPHILS % (AUTO) 63.8 % (42-75); PLATELET COUNT 286 X10'3 (140-440); RED BLOOD COUNT 3.54 X10'6 (4.20-5.60); RED CELL DISTRIBUTION WIDTH 13.7 % (11.5-14.5); WHITE BLOOD COUNT 4.4 X10'3 (4.5-11.0)
[2024-04-02 09:13] LABS: HEMOGLOBIN A1C 5.6 % (4.5-6.2)
[2024-04-02 10:00] VITALS: BP 97/56; PULSE 85; RESP 18; TEMP 98; O2SAT 98
[2024-04-02] MEDS: piperacillin/tazo 3.375gm/50ml 50 ML IV SCH ×2 (11:42→20:29)
[2024-04-02] MEDS: acetaminophen 325mg tablet PO PRN (11:43)
[2024-04-02] MEDS ORDERED: vancomycin/NS 1 GM ADD-VANTAGE 250 ML IV SCH (12:00)
[2024-04-02 18:00] VITALS: BP 91/52; PULSE 69; RESP 18; TEMP 97.6; O2SAT 98
[2024-04-02 20:00] VITALS: RESP 18; O2SAT 98
[2024-04-02 22:00] VITALS: BP 97/56; PULSE 78; RESP 16; TEMP 97.9; O2SAT 96
[2024-04-03] MEDS: LORazepam 1 MG tablet PO PRN (03:44)
[2024-04-03 06:00] VITALS: BP 99/52; PULSE 70; RESP 15; TEMP 96.8; O2SAT 99
[2024-04-03 06:40] LABS: BASOPHILS # (AUTO) 0.1 X10'3 (0-0.2); EOSINOPHILS # (AUTO) 0.1 X10'3 (0-0.9); EOSINOPHILS % (AUTO) 1.9 % (0-6); LYMPHOCYTES # (AUTO) 1.1 X10'3 (1.1-4.8); MEAN CORPUSCULAR HEMOGLOBIN 30.2 PG (27.0-31.0); MEAN CORPUSCULAR HGB CONC 33.2 g/dL (33.0-36.5); MEAN CORPUSCULAR VOLUME 90.9 FL (78-98); MONOCYTES # (AUTO) 0.4 X10'3 (0-0.9); MONOCYTES % (AUTO) 8.3 % (2-12); NEUTROPHILS # (AUTO) 3.4 X10'3 (1.8-7.7); NEUTROPHILS % (AUTO) 66.8 % (42-75); PLATELET COUNT 300 X10'3 (140-440); RED BLOOD COUNT 3.63 X10'6 (4.20-5.60); RED CELL DISTRIBUTION WIDTH 14.1 % (11.5-14.5); WHITE BLOOD COUNT 5.1 X10'3 (4.5-11.0)
[2024-04-03 07:10] LABS: ALANINE AMINOTRANSFERASE 34 U/L (12-78); ALBUMIN 2.5 G/DL (3.4-5.0); ALBUMIN/GLOBULIN RATIO 0.9 (1.1-1.5); ALKALINE PHOSPHATASE 63 IU/L (46-116); ANION GAP 5 (8-16); ASPARTATE AMINO TRANSFERASE 22 U/L (10-37); BILIRUBIN,TOTAL 0.3 MG/DL (0.1-1.0); BLOOD UREA NITROGEN 9 MG/DL (7-18); BUN/CREATININE RATIO 16.7 (10.0-20.0); CHLORIDE 112 MMOL/L (99-107); CREATININE 0.54 MG/DL (0.40-0.90); GLUCOSE 94 MG/DL (70-104); MAGNESIUM 1.6 MG/DL (1.5-2.4); POTASSIUM 4.3 MMOL/L (3.5-5.1); SODIUM 143 MMOL/L (135-145); TOTAL CARBON DIOXIDE 26.1 MMOL/L (24-32); TOTAL PROTEIN 5.2 G/DL (6.4-8.2); eCRCL 106 ML/MIN; eGFR > 90 ML/MIN
[2024-04-03] MEDS: LORazepam 2 mg/ml vial IV PRN (07:53)
[2024-04-03 08:00] VITALS: RESP 14; O2SAT 99
[2024-04-03] MEDS ORDERED: ACET-1008 PO (09:46)
[2024-04-03 10:00] VITALS: BP 120/72; PULSE 80; RESP 14; TEMP 97.5; O2SAT 98
[2024-04-03] MEDS ORDERED: VANCOMYCIN LEVEL IV ONE (11:30)
[2024-04-03] MEDS ORDERED: CIPR-259 PO (16:28)
== END 2024-04-03 11:30 | disposition home or self-care (01) | DRG 812 ==
LOC: ER 06:01 → ED HOLD 13:49 → ORTHO 4S 19:05
PROVIDERS: ADMIT Internal Medicine; ATTEND Internal Medicine
DX: T40.411A Poisoning by fentanyl or fentanyl analogs, accidental (unintentional), initial encounter (principal); I95.9 Hypotension, unspecified; D72.829 Elevated white blood cell count, unspecified; E87.6 Hypokalemia; F15.10 Other stimulant abuse, uncomplicated; F19.10 Other psychoactive substance abuse, uncomplicated; F20.9 Schizophrenia, unspecified; N39.0 Urinary tract infection, site not specified; Y92.89 Other specified places as the place of occurrence of the external cause; Z76.5 Malingerer [conscious simulation]; Z87.442 Personal history of urinary calculi; Z98.891 History of uterine scar from previous surgery; Z91.030 Bee allergy status
CPT/HCPCS: 36415; 70150; 71045; 80053; 80305; 80320; 81001; 82550; 83036; 83605; 83735; 84132; 84145; 84702; 85007; 85025; 85651; 86140; 87040; 87081; 93306; 97116; 97161; 99291; A4615; A6258; G0378; J1650; J1885; J2060; J2270; J2310; J2543; J7030; J7040

== ENCOUNTER 2024-10-30 10:04 | Emergency (ER) | payer MEDICAID ==
[~2024-10-30] VITALS: Ht 154.9 cm; Wt 75.2 kg
[~2024-10-30 10:04] MED LIST changes: +ACET-1008 PO; +NALO4SPR BOTHNARES; -QUET200T31 PO
[2024-10-30 10:53] VITALS: BP 118/78; PULSE 112; RESP 18; TEMP 98.8; O2SAT 99
== END 2024-10-30 10:54 | disposition home or self-care (01) ==
LOC: ER 10:05
DX: M54.2 Cervicalgia (principal); F15.90 Other stimulant use, unspecified, uncomplicated; F19.90 Other psychoactive substance use, unspecified, uncomplicated; F20.9 Schizophrenia, unspecified; Z87.442 Personal history of urinary calculi; Z56.0 Unemployment, unspecified; Z98.890 Other specified postprocedural states; Z91.030 Bee allergy status; Z79.899 Other long term (current) drug therapy
CPT/HCPCS: 99281

== ENCOUNTER 2025-02-09 22:58 | Emergency (ER) | payer MEDICAID ==
[~2025-02-09] VITALS: Ht 154.9 cm; Wt 77.0 kg
[~2025-02-09 22:58] MED LIST changes: -ACET-1008 PO; +BUSP30TA3 PO; -FAMO-128 PO; +HALO5TAB PO; -HYDR-4383 PO; +LAMO100T PO; +MIRT45TA83 PO; -NALO4SPR BOTHNARES; -ONDA-245 PO; -QUET100T34 PO
[2025-02-09 23:00] VITALS: TEMP 98.1
[2025-02-10] VITALS: BP 123/88; PULSE 101; RESP 18; O2SAT 99
== END 2025-02-10 00:08 | disposition left against medical advice (07) ==
LOC: ER 22:59
DX: T65.91XA Toxic effect of unspecified substance, accidental (unintentional), initial encounter (principal); Z53.21 Procedure and treatment not carried out due to patient leaving prior to being seen by health care provider; Z91.014 Allergy to mammalian meats; Y92.89 Other specified places as the place of occurrence of the external cause

== ENCOUNTER 2025-07-25 21:20 | Emergency (ER) | payer MEDICAID ==
[~2025-07-25] VITALS: Ht 154.9 cm; Wt 68.8 kg
[2025-07-25] MEDS ORDERED: IBUP-1984 PO (22:42)
[2025-07-25] MEDS ORDERED: CIPR10DR RIGHT EAR (22:42)
[2025-07-25] MEDS ORDERED: BUSP10TA11 PO (22:42)
--- NOTE | 2025-07-25 22:42 | Physician Documentation ---
History of Present Illness ~ Chief Complaint: Ear Pain Stated Complaint: R EAR PAIN/ BACK PAIN Time Seen by MD: 21:35 Primary Medical Doctor: Vidal Atkinson HPI Right Ear pain x 2 days. Uses Q-tips. No recent trauma. No hearing loss or fevers. Medication Reconciliation Allergies: Coded Allergies: No Known Drug Allergies (Verified Allergy, Unknown, 02/09/25) venom-honey bee (Unverified Allergy, Unknown, 02/09/25) Scheduled Buspirone HCl (Buspirone HCl), 1 TAB PO BID Buspirone Hcl* (Buspar*), 1 TAB PO Q12H Ciprofloxacin Hcl/Hc Otic Susp* (Cipro Hc Otic Susp*), 3 DROP RIGHT EAR Q12H Haloperidol (Haloperidol), 5 MG PO HS Ibuprofen* (Motrin*), 400 MG PO Q6H Lamotrigine (LaMICtal tablet), 100 MG PO BID Mirtazapine (Remeron), 1 TAB PO HS Past Medical History Past Medical History: Seizures, Kidney Stones, Schizophrenia Past Surgical History: Alcohol Use: None Drug Use: methamphetamine, other Lives with: Other Lives In: Other Occupation: unemployed Review of Systems All Other Systems at this time: Reviewed and Negative Constitutional: Denies: fever ENT: Reports: ear pain; Denies: ear bleeding, ear discharge, hearing loss, ear ringing Physical Exam Vital Signs: RN Vital Signs have been reviewed: Yes, Temperature: 98.0, Source: Oral, Heart Rate: 89, Respiratory Rate: 16, BP: 120/88, Pulse Oximetry: 99, Weight: 68.800 Oxygen Flow Rate: 0 General Appearance: alert, mild distress Eye Lid: normal inspection Conjunctiva: normal inspection Pupils/EOM/Fundus: PERRLA Ear: discharge, erythema, swelling, tenderness; No: bleeding, foreign body Ear No mastoid tenderness Face: normal inspection Neck: non-tender Respiratory: no respiratory distress Chest: no accessory muscle use Cardiovascular: normal peripheral pulses Lymphatic: no adenopathy Neurologic: oriented x4, magnetic healer II-XII nml as tested Psychiatric: normal mood/affect Progress Results/Orders Results/Orders Completed Orders - ASHLEE LOPEZ PAC Cipro 0.3%/Dexameth 0.1% Otic (Ciproflox (07/25/25 22:49) Ibuprofen Tablet (Motrin Tablet) (07/25/25 22:49) Medications Received in ER Medications (Trade) Dose Ordered Sig/Gissell Route PRN Reason Start Time Stop Time Status Last Admin Dose Admin (CIPROFLOX-DEXAMETH OTIC SUSP 10ml bottle) 4 drp ONCE STAT RIGHT EAR 07/25/25 22:49 07/25/25 22:54 DC 07/25/25 22:58 4 DRP (Motrin tablet) 400 mg ONCE STAT PO 07/25/25 22:49 07/25/25 22:50 DC 07/25/25 22:58 400 MG Vital Signs 07/25/25 07/25/25 21:23 23:06 Temp 98.0 97.7 Pulse 89 83 Resp 16 16 B/P (MAP) 120/88 122/84 Pulse Ox 99 100 O2 Flow Rate 0 Medical Decision Making Additional information obtaine: N/A Findings Examination history consistent with acute otitis externa without otitis media and/or perforation. No suspected clinical presentation throat tight is externa malignant or mastoiditis. First dropped Ciprodex provided along with ibuprofen. Additionally patient provided breakthrough prescription for Buspirone on for anxiety. She has scheduled follow up. Ear Diff. Dx: Considerations: Include: Cerumen impaction, Otitis externa, Otitis media, Perforation, Tympanic Membrane Injury Eye Diff. Dx: Considerations: Include: Other (Noncontributory) Nose Diff. Dx: Considerations: Include: Other (Noncontributory) Tooth Diff. Dx: Considerations: Include: Other (Noncontributory) Throat Diff Dx: Considerations: Include: Other (Noncontributory) Departure Disposition: HOME / SELF CARE / HOMELESS Impression: Primary Impression: Otitis externa Qualified Codes: H60.501 - Unspecified acute noninfective otitis externa, right ear Additional Impression: Anxiety Condition: Improved Discharge Instructions: Otitis Externa, [id number] Referrals: NO PRIMARY CARE PROVIDER (PCP) Prescriptions Amoxicillin Trihydrate (Amoxicillin) 500 Mg Capsule 1 CAP PO BID for 7 Days, #14 CAP Prov: ASHLEE LOPEZ PAC 07/25/25 Buspirone Hcl* (Buspar*) 10 Mg Tablet 1 TAB PO Q12H for 10 Days, #20 TAB Prov: ASHLEE LOPEZ PAC 07/25/25 Ibuprofen* (Motrin*) 400 Mg Tablet 400 MG PO Q6H for 10 Days, #30 TAB Prov: ASHLEE LOPEZ 07/25/25 Ciprofloxacin Hcl/Hc Otic Susp* (Cipro Hc Otic Susp*) 10 Ml Bottle 3 DROP RIGHT EAR Q12H for 7 Days, #10 ML Prov: ASHLEE LOPEZ 07/25/25 Education Educated: Patient Educated regarding: diagnosis, treatment, prognosis, need for follow up Signature Scribe Signature: . Attestation: . ASHLEE LOPEZ [facility] Jul 25, 2025 22:42
[2025-07-25] MEDS: CIPROFLOXACIN HCL/DEXAMETH 7.5 ML DROPS.SUSP RIGHT EAR STA (22:58)
[2025-07-25] MEDS: ibuprofen tablet 400 MG TABLET PO STA (22:58)
[2025-07-25 23:06] VITALS: BP 122/84; PULSE 83; RESP 16; TEMP 97.7; O2SAT 100
[2025-07-25] MEDS ORDERED: AMOX-101 PO (23:10)
[2025-07-28] MEDS ORDERED: LAMO100T PO (21:46)
[2025-07-28] MEDS ORDERED: HYDR-3686 PO (21:46)
[2025-07-28] MEDS ORDERED: MIRT45TA83 PO (21:46)
[2025-07-28] MEDS ORDERED: BUSP30TA3 PO (22:02)
== END 2025-07-25 23:11 | disposition home or self-care (01) ==
LOC: ER 21:21
DX: H60.91 Unspecified otitis externa, right ear (principal); F41.9 Anxiety disorder, unspecified; F20.9 Schizophrenia, unspecified; F15.90 Other stimulant use, unspecified, uncomplicated; Z87.442 Personal history of urinary calculi; Z79.899 Other long term (current) drug therapy; Z56.0 Unemployment, unspecified; Z98.890 Other specified postprocedural states; Z91.030 Bee allergy status
CPT/HCPCS: 99283